=== PATIENT | female | born 2000 | race Caucasian/White ===

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

== ENCOUNTER → 2022-01-26 | Outpatient (REF) | payer OTHER ==
[~2022-01-26] MED LIST: AMOX875T2; FERR325T3 PO; PRED10TA2 PO
== END ==
LOC: M LAB REF 16:52
PROVIDERS: ATTEND Registered Nurse
DX: R30.0 Dysuria (principal)

== ENCOUNTER → 2022-02-03 | Outpatient (CLI) | payer OTHER | LOC: M RAD 10:26 | PROVIDERS: ATTEND Registered Nurse | DX: N91.2 Amenorrhea, unspecified (principal) ==

== ENCOUNTER → 2022-03-30 | Outpatient (REF) | payer OTHER ==
[~2022-03-30] MED LIST changes: +C-251TAB PO; +OMEP40CA5; +PRED5TA PO
== END ==
LOC: M LAB REF 17:04
PROVIDERS: ATTEND Registered Nurse
DX: R30.0 Dysuria (principal)

== ENCOUNTER 2022-05-07 15:40 | Inpatient (IN) | payer OTHER ==
[~2022-05-07] VITALS: Ht 170.2 cm; Wt 52.7 kg
[2022-05-07] MEDS: predniSONE 1 MG TAB PO SCH ×2 (16:50→18:37)
[2022-05-07] MEDS ORDERED: NICOTINE 14 MG/24 HR TRANSDERMAL TD ONE (16:50)
[2022-05-07 17:36] LABS: HEMATOCRIT 36.8 % (36.0-47.0); HEMOGLOBIN 12.3 g/dl (12.0-15.5); MEAN CORPUSCULAR HEMOGLOBIN 30.6 pg (27.0-33.0); MEAN CORPUSCULAR HGB CONC 33.4 g/dl (32.0-36.5); MEAN CORPUSCULAR VOLUME 91.5 fl (80.0-96.0); RED BLOOD COUNT 4.02 10^6/uL (4.00-5.40); WHITE BLOOD COUNT 8.5 10^3/uL (4.0-10.0)
[2022-05-07 17:40] LABS: PLATELET COUNT, AUTOMATED 95 10^3/uL (150-450)
[2022-05-07 18:04] LABS: AMPHETAMINES LEVEL URINE NEGATIVE (NEGATIVE); BARBITURATES URINE NEGATIVE (NEGATIVE); BENZODIAZEPINES URINE NEGATIVE (NEGATIVE); CANNABINOIDS URINE NEGATIVE (NEGATIVE); COCAINE METABOLITE URINE NEGATIVE (NEGATIVE); METHADONE URINE NEGATIVE (NEGATIVE); OPIATES URINE NEGATIVE (NEGATIVE); PHENCYCLIDINE URINE NEGATIVE (NEGATIVE)
[2022-05-07 18:06] LABS: ETHYL ALCOHOL (ETHANOL) < 0.003 % (0.000-0.010)
[2022-05-07 18:08] LABS: ACETAMINOPHEN LEVEL < 2.0 UG/ML (10.0-20.0); SALICYLATE LEVEL < 3.0 MG/DL (<30)
[2022-05-07 18:11] LABS: ALBUMIN 4.4 G/DL (3.2-5.2); ALKALINE PHOSPHATASE 73 U/L (46-116); ALT/SGPT 21 U/L (7.0-40); AST/SGOT 15 U/L (<34); BILIRUBIN,DIRECT 0.2 MG/DL (<0.4); BILIRUBIN,TOTAL 0.5 MG/DL (0.3-1.2); BLOOD UREA NITROGEN 10 MG/DL (9-23); CALCIUM LEVEL 9.4 MG/DL (8.5-10.1); CARBON DIOXIDE LEVEL 27 MMOL/L (20-31); CHLORIDE LEVEL 104 MMOL/L (98-107); GLUCOSE, FASTING 83 MG/DL (60-100); POTASSIUM SERUM 3.8 MMOL/L (3.5-5.1); SODIUM LEVEL 140 MMOL/L (136-145); THYROID STIMULATING HORMONE 2.084 uIU/ML (0.48-4.17); TOTAL PROTEIN 7.4 G/DL (5.7-8.2)
[2022-05-07 18:12] LABS: HCG, SERUM QUALITATIVE NEGATIVE (NEGATIVE)
[2022-05-07] MEDS ORDERED: MAALOX 30 ML SUSP *UDC PO PRN (19:00)
[2022-05-07] MEDS ORDERED: ACETAMINOPHEN TAB 650MG DOSE (2X325MG) PO PRN (19:00)
[2022-05-07] MEDS ORDERED: MOM 30ML SUSPENSION UDC PO PRN (19:00)
[2022-05-07] MEDS ORDERED: ASCO500T PO (20:49)
[2022-05-07] MEDS ORDERED: FERR324T2 PO (20:49)
[2022-05-07] MEDS ORDERED: PRED5TA PO (20:49)
[2022-05-07] MEDS ORDERED: HOME MED LIST COMPLETE! XX SCH (20:50)
[2022-05-07 23:56] VITALS: BP 138/100
[2022-05-08] MEDS: traZODone 50 MG TAB PO PRN (01:17)
[2022-05-08] MEDS: SERTRALINE HCL 50 MG TAB PO SCH (08:22)
[2022-05-08] MEDS: NICOTINE 21MG/24HR 1 EA TRANSDERMAL TD SCH (08:22)
[2022-05-08] MEDS ORDERED: predniSONE 1 MG TAB PO SCH (09:00)
[2022-05-08] MEDS ORDERED: INFLUENZA QUADRIVALENT PF VACCINE 0.5ML SYRINGE IM.IMMUN ONE (09:00)
[2022-05-08] MEDS ORDERED: ASCORBIC ACID 500 MG TAB PO SCH (09:00)
[2022-05-08] MEDS ORDERED: FERROUS SULFATE 325MG TAB PO SCH (09:00)
[2022-05-08] MEDS: predniSONE 2.5 MG TAB PO SCH (09:42)
[2022-05-08 16:07] VITALS: BP 138/89
[2022-05-09] MEDS: traZODone 50 MG TAB PO PRN ×2 (01:08→23:19)
[2022-05-09 06:29] VITALS: BP 126/63
[2022-05-09] MEDS: SERTRALINE HCL 50 MG TAB PO SCH (08:24)
[2022-05-09] MEDS: NICOTINE 21MG/24HR 1 EA TRANSDERMAL TD SCH (08:24)
[2022-05-09] MEDS: ASCORBIC ACID 500 MG TAB PO SCH (08:24)
[2022-05-09] MEDS: FERROUS SULFATE 325MG TAB PO SCH (08:24)
[2022-05-09 15:55] VITALS: BP 134/77
[2022-05-10 06:51] VITALS: BP 98/60
[2022-05-10] MEDS: predniSONE 2.5 MG TAB PO SCH (09:06)
[2022-05-10] MEDS: SERTRALINE HCL 50 MG TAB PO SCH (09:06)
[2022-05-10] MEDS: NICOTINE 21MG/24HR 1 EA TRANSDERMAL TD SCH (09:07)
[2022-05-10 16:52] VITALS: BP 128/75
[2022-05-10] MEDS: traZODone 50 MG TAB PO PRN (23:03)
[2022-05-11 06:19] VITALS: BP 128/71
[2022-05-11] MEDS ORDERED: SERT50TA29 PO (08:10)
[2022-05-11] MEDS ORDERED: TRAZ-252 PO (08:10)
[2022-05-11] MEDS: FERROUS SULFATE 325MG TAB PO SCH (08:26)
[2022-05-11] MEDS: ASCORBIC ACID 500 MG TAB PO SCH (08:27)
[2022-05-11] MEDS: SERTRALINE HCL 50 MG TAB PO SCH (08:27)
[2022-05-11] MEDS: NICOTINE 21MG/24HR 1 EA TRANSDERMAL TD SCH (09:14)
== END 2022-05-11 11:20 | disposition home or self-care (01) | DRG 882 ==
LOC: M ED 15:40 → M ED INP 18:59 → M PSY 22:45
PROVIDERS: ADMIT Psychiatry & Neurology Psychiatry; ATTEND Psychiatry & Neurology Psychiatry
DX: F43.23 Adjustment disorder with mixed anxiety and depressed mood (principal); R45.851 Suicidal ideations; F60.89 Other specific personality disorders; F34.1 Dysthymic disorder; Z79.899 Other long term (current) drug therapy; Z79.52 Long term (current) use of systemic steroids

== ENCOUNTER → 2022-10-14 | Outpatient (REF) | payer OTHER ==
[~2022-10-14] MED LIST changes: +ACID1TAB7 PO; +ASCO500T PO; +FERR324T2 PO; +SERT50TA29 PO; +TRAZ-252 PO
== END ==
LOC: M LAB REF 15:13
PROVIDERS: ATTEND Nurse Practitioner
DX: D69.6 Thrombocytopenia, unspecified (principal)